=== PATIENT | male | born 1960 | race African-American/Black ===

== ENCOUNTER 2017-07-02 20:11 | Emergency (ER) | payer MEDICARE, OTHER ==
[~2017-07-02] VITALS: Ht 182.9 cm; Wt 77.0 kg
[2017-07-02 20:13] VITALS: BP 134/74
[2017-07-02] MEDS ORDERED: LIDOCAINE 1%, 20ML INFIL ONE (20:30)
[2017-07-02] MEDS ORDERED: LIDOCAINE 1%, 20ML ONE (20:38)
[2017-07-02] MEDS ORDERED: HYDROcodone/APAP 5/325 TABLET ONE (21:36)
[2017-07-02] MEDS ORDERED: HYDROcodone/APAP 5/325 TABLET PO ONE (22:00)
== END 2017-07-02 21:48 | disposition home or self-care (01) ==
LOC: ED 21:42
DX: L03.221 Cellulitis of neck (principal); I10 Essential (primary) hypertension; E11.9 Type 2 diabetes mellitus without complications; E78.5 Hyperlipidemia, unspecified
CPT/HCPCS: 10060; 99283

== ENCOUNTER 2017-07-04 21:11 | Emergency (ER) | payer MEDICARE ==
[~2017-07-04] VITALS: Ht 182.9 cm; Wt 75.0 kg
[2017-07-04 21:15] VITALS: BP 129/80
== END 2017-07-04 22:16 | disposition home or self-care (01) ==
LOC: ED 21:45
DX: L02.11 Cutaneous abscess of neck (principal); E11.65 Type 2 diabetes mellitus with hyperglycemia; I10 Essential (primary) hypertension; E78.5 Hyperlipidemia, unspecified
CPT/HCPCS: 99283